=== PATIENT | female | born 1965 | race Caucasian/White ===

== ENCOUNTER 2022-09-28 09:42 | Emergency (ER) | payer BC, OTHER ==
[~2022-09-28] VITALS: Ht 170.2 cm; Wt 81.6 kg
--- NOTE | 2022-09-28 09:51 | NUR ---
DR Romo at the bedside for MSE.
[2022-09-28] MEDS ORDERED: HYDROCODONE/APAP 10-325 MG TABLET ONE (09:58)
[2022-09-28] MEDS: HYDROCODONE/APAP 10-325 MG TABLET PO ONE (10:00)
--- NOTE | 2022-09-28 10:05 | NUR ---
removed shoe, cut off kinney guard and sock. No noticable swelling or discoloration. PMS intact, cap refill approx 3 sec. Ice packs applied. Foot and lower leg elevated with pillow.
[2022-09-28] MEDS ORDERED: HYDR-3980 PO (11:03)
--- NOTE | 2022-09-28 11:27 | NUR ---
Applied short posterior splint for left foot/leg. PMS intact, cap refill <2 sec. Measured for crutches, gave pt instructions. Gave pt RX and d/c instructions, pt verbalized understanding.
== END 2022-09-28 11:39 | disposition home or self-care (01) ==
LOC: ER 09:48
DX: S82.832A Other fracture of upper and lower end of left fibula, initial encounter for closed fracture (principal); X50.1XXA Overexertion from prolonged static or awkward postures, initial encounter; Y93.89 Activity, other specified; Y92.89 Other specified places as the place of occurrence of the external cause; Y99.8 Other external cause status
CPT/HCPCS: 73590; 73610; A4663